=== PATIENT | male | born 1980 | race Hispanic/Latino ===

== ENCOUNTER 2017-04-13 07:33 | Outpatient (CLI) | payer BC ==
--- NOTE | 2017-04-13 10:27 | NM ---
HEPATOBILIARY SCAN: DATE: 04/13/17. COMPARISON: None. History Unspecified abdominal pain. TECHNIQUE: Anterior planar imaging is obtained over the abdomen for 60 minutes following the intravenous adminis tration of 5.1 mCi of Technetium 99m labeled mebrofenin. 1.5 mcg of CCK infused over 30 minutes foll owing visualization of the gallbladder to calculate the gallbladder ejection fraction. FINDINGS: There is prominent radiotracer activity overlying the liver on post-injection imaging. Biliary activ ity and small bowel activity is seen by 10 minutes. The gallbladder begins to fill by 30 minutes. G allbladder ejection fraction is calculated at 78%, within normal limits. IMPRESSION: Normal hepatobiliary scan. POS: [facility]
== END 2017-04-13 07:34 | disposition home or self-care (01) ==
LOC: NM 07:33
PROVIDERS: ATTEND Internal Medicine Gastroenterology
DX: R10.9 Unspecified abdominal pain (principal)
CPT/HCPCS: 78227; A9537